=== PATIENT | female | born 2000 | race Caucasian/White ===

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

== ENCOUNTER 2023-07-26 14:32 | Emergency (ER) | payer SELFPAY ==
[~2023-07-26 14:32] MED LIST changes: +LIDO15SO9 PO; -LIDO20SO24 PO
== END 2023-07-26 15:19 | disposition left against medical advice (07) ==
LOC: ER 14:32
DX: R10.9 Unspecified abdominal pain (principal); Z53.21 Procedure and treatment not carried out due to patient leaving prior to being seen by health care provider